=== PATIENT | female | born 1975 | race Caucasian/White ===

== ENCOUNTER → 2019-12-05 17:28 | Outpatient (BNVA) | payer SELFPAY | PROVIDERS: PCP Family Medicine; Visit Provider Emergency Medicine | DX: M25.559 Pain in unspecified hip (principal); M53.3 Sacrococcygeal disorders, not elsewhere classified; L03.115 Cellulitis of right lower limb | CPT/HCPCS: 72170 ==

== ENCOUNTER → 2021-01-12 09:42 | Outpatient (BNVA) | payer SELFPAY | PROVIDERS: PCP Family Medicine; Visit Provider Nurse Practitioner Family | DX: J32.9 Chronic sinusitis, unspecified (principal); R68.89 Other general symptoms and signs; I10 Essential (primary) hypertension; Z20.822 Contact with and (suspected) exposure to COVID-19 | CPT/HCPCS: 87400; 87635 ==

== ENCOUNTER → 2021-01-20 10:19 | Outpatient (BNVA) | payer SELFPAY | PROVIDERS: PCP Family Medicine; Visit Provider Emergency Medicine | DX: I10 Essential (primary) hypertension (principal); E66.9 Obesity, unspecified; Z72.0 Tobacco use; R53.83 Other fatigue | CPT/HCPCS: 85025 ==

== ENCOUNTER → 2021-02-04 11:15 | Outpatient (BNVA) | payer SELFPAY | PROVIDERS: PCP Family Medicine; Visit Provider Nurse Practitioner Family | DX: I10 Essential (primary) hypertension (principal); R53.83 Other fatigue; Z72.0 Tobacco use | CPT/HCPCS: 80053; 80061; 82043; 84443; 85025 ==

== ENCOUNTER → 2021-02-17 14:51 | Outpatient (BNVA) | payer SELFPAY | PROVIDERS: PCP Family Medicine; Visit Provider Emergency Medicine | DX: G62.9 Polyneuropathy, unspecified (principal); M79.671 Pain in right foot; M79.672 Pain in left foot; G89.29 Other chronic pain | CPT/HCPCS: 73630 ==

== ENCOUNTER → 2021-03-17 10:35 | Outpatient (BNVA) | payer SELFPAY | PROVIDERS: PCP Family Medicine; Visit Provider Emergency Medicine | DX: M25.562 Pain in left knee (principal); M17.12 Unilateral primary osteoarthritis, left knee | CPT/HCPCS: 73562 ==

== ENCOUNTER 2021-05-25 11:57 | Outpatient (CLI) | payer SELFPAY ==
--- NOTE | 2021-05-25 12:04 | XRR_ITS ---
PROCEDURE INFORMATION: Exam: XR Cervical Spine Exam date and time: 05/25/2021 12:04 PM Age: 46 years old Clinical indication: Cervicalgia; Patient HX: Pain, HX of bulging disc; Additional info: M50.20 - other cervical disc displacement, unspecified ce. . . TECHNIQUE: Imaging protocol: XR of the cervical spine. Views: 2 or 3 views. COMPARISON: CR Chest 1 [place] [id number] 08/25/2014 8:53 PM FINDINGS: Bones/joints: No fracture or other acute abnormalities are seen. Chronic degenerative changes are present especially from C5 through C7 with disc space narrowing sclerosis and osteophytes. There is no significant malalignment. Soft tissues: Unremarkable. XR/XR cervical spine 3V* [id number] IMPRESSION: Chronic degenerative disease. No acute abnormality.
--- NOTE | 2021-05-25 12:04 | XRR_ITS ---
PROCEDURE INFORMATION: Exam: XR Lumbosacral Spine Exam date and time: 05/25/2021 12:04 PM Age: 46 years old Clinical indication: Pain; Dorslagia; Prior surgery; Surgery type: Gb, tubal; Additional info: M54.9 - dorsalgia, unspecified TECHNIQUE: Imaging protocol: XR of the lumbosacral spine. Views: 2 or 3 views. COMPARISON: CR XR pelvis 1-2V* [id number] 12/05/2019 5:40 PM FINDINGS: Bones/joints: No fracture or other acute abnormalities are seen. Chronic degenerative changes are present with mild disc space narrowing and scattered sclerosis and osteophyte formation. There is no significant malalignment. Soft tissues: Unremarkable. XR/XR lumbar spine 2-3V* [id number] IMPRESSION: Moderate chronic degenerative disease. No acute abnormality.
== END 2021-05-25 11:58 | disposition home or self-care (01) ==
LOC: RAD 12:00
PROVIDERS: PCP Family Medicine; Visit Provider Family Medicine
DX: M50.20 Other cervical disc displacement, unspecified cervical region (principal); M54.9 Dorsalgia, unspecified; G89.29 Other chronic pain; M54.16 Radiculopathy, lumbar region
CPT/HCPCS: 72040; 72100

== ENCOUNTER → 2021-06-17 12:20 | Outpatient (BNVA) | payer SELFPAY | PROVIDERS: PCP Family Medicine; Visit Provider Emergency Medicine | DX: L03.90 Cellulitis, unspecified (principal); Z98.1 Arthrodesis status | CPT/HCPCS: 73590 ==

== ENCOUNTER → 2021-07-05 09:57 | Outpatient (BNVA) | payer SELFPAY | PROVIDERS: PCP Family Medicine; Referring Provider Family Medicine; Visit Provider Anesthesiology Pain Medicine | DX: G89.29 Other chronic pain (principal); M54.2 Cervicalgia; M54.16 Radiculopathy, lumbar region; M79.604 Pain in right leg; F17.210 Nicotine dependence, cigarettes, uncomplicated | CPT/HCPCS: 99205 ==

== ENCOUNTER 2021-07-15 16:01 | Outpatient (CLI) | payer MEDICAID, SELFPAY ==
--- NOTE | 2021-07-15 16:45 | MR_ITS ---
WS: [id number] MRI LUMBAR SPINE NONCONTRAST HISTORY: M54.16 - Radiculopathy, lumbar region RIGHT leg pain and numbness. COMPARISON: None available. TECHNIQUE: Sagittal and axial multisequence imaging is submitted. Straightening and reversal normal cervical lordosis centered at C5-6. Mild encroachment upon the vent ral thecal sac. Mild straightening of the normal lumbar lordosis. Less than 2 mm retrolisthesis of L4. Mild disc mroelia ccation throughout the lumbar spine. No marrow abnormalities or fractures. Conus terminates normally at L1-2 disc level. L1-L2: Normal. L2-L3: Mild facet and ligamentum flavum hypertrophy. No stenosis. L3-L4: Very minimal annular disc bulging with mild ligamentum flavum hypertrophy and facet arthritis. Small amount of fluid in the facet joints. Mild LEFT foraminal narrowing. L4-L5: Mild annular disc bulging and mild osteophytosis. Annular tear in the RIGHT foraminal disc. Mi ld ligamentum flavum and facet arthritis. Fluid in the facet joints bilaterally. Mild bilateral sky inal narrowing, RIGHT greater than LEFT. L5-S1: Mild ligamentum flavum hypertrophy and facet arthritis. No stenosis. Paravertebral soft tissues are normal. MR/MR lumbar spine wo con* [id number] IMPRESSION: 1. Mild LEFT foraminal narrowing at L3-4 and bilaterally at L4-5. Slightly gre ater stenosis on the RIGHT at L4-5. 2. Mild facet joint synovitis at L3-4 and L4-5. 3. No central stenosis.
== END 2021-07-15 16:02 | disposition home or self-care (01) ==
LOC: RADSHAW 16:05
PROVIDERS: PCP Family Medicine; Visit Provider Anesthesiology Pain Medicine
DX: M54.16 Radiculopathy, lumbar region (principal); M65.88 Other synovitis and tenosynovitis, other site; M48.061 Spinal stenosis, lumbar region without neurogenic claudication
CPT/HCPCS: 72148

== ENCOUNTER → 2021-07-20 10:42 | Outpatient (BNVA) | payer MEDICAID, SELFPAY | PROVIDERS: PCP Family Medicine; Visit Provider Anesthesiology Pain Medicine | DX: G89.29 Other chronic pain (principal); M54.16 Radiculopathy, lumbar region; M54.2 Cervicalgia; F17.210 Nicotine dependence, cigarettes, uncomplicated | CPT/HCPCS: 99214 ==

== ENCOUNTER → 2021-12-07 10:50 | Outpatient (BNVA) | payer MEDICAID, SELFPAY | PROVIDERS: PCP Family Medicine; Visit Provider Family Medicine | DX: I10 Essential (primary) hypertension (principal); R60.0 Localized edema; M54.16 Radiculopathy, lumbar region; M50.20 Other cervical disc displacement, unspecified cervical region; R21 Rash and other nonspecific skin eruption; I16.0 Hypertensive urgency; E87.6 Hypokalemia; Z13.1 Encounter for screening for diabetes mellitus; Z13.220 Encounter for screening for lipoid disorders; Z13.6 Encounter for screening for cardiovascular disorders | CPT/HCPCS: 80053; 80061 ==

== ENCOUNTER → 2021-12-23 13:49 | Outpatient (BNVA) | payer MEDICAID, SELFPAY | PROVIDERS: PCP Family Medicine; Visit Provider Anesthesiology Pain Medicine | DX: G89.29 Other chronic pain (principal); M54.16 Radiculopathy, lumbar region; M54.2 Cervicalgia; F17.210 Nicotine dependence, cigarettes, uncomplicated | CPT/HCPCS: 99214 ==

== ENCOUNTER → 2022-01-04 16:35 | Outpatient (BNVA) | payer MEDICAID, SELFPAY | PROVIDERS: PCP Family Medicine; Visit Provider Family Medicine | DX: M54.16 Radiculopathy, lumbar region (principal); M50.20 Other cervical disc displacement, unspecified cervical region; I10 Essential (primary) hypertension; G47.00 Insomnia, unspecified; R21 Rash and other nonspecific skin eruption | CPT/HCPCS: 80048; 85651; 86038; 86140 ==

== ENCOUNTER 2022-02-08 06:00 | Outpatient (RCR) | payer MEDICAID, SELFPAY | END 2022-02-10 23:59 | disposition home or self-care (01) | LOC: MPT 06:00 | PROVIDERS: PCP Family Medicine; Referring Provider Anesthesiology Pain Medicine; Visit Provider Anesthesiology Pain Medicine | DX: M54.50 Low back pain, unspecified (principal); G89.29 Other chronic pain | CPT/HCPCS: 97162 ==

== ENCOUNTER → 2022-02-18 11:29 | Outpatient (BNVA) | payer MEDICAID, SELFPAY | PROVIDERS: PCP Family Medicine; Visit Provider Emergency Medicine | DX: R68.89 Other general symptoms and signs (principal); J02.9 Acute pharyngitis, unspecified; B34.9 Viral infection, unspecified | CPT/HCPCS: 87071; 87400; 87880 ==

== ENCOUNTER → 2022-03-02 12:59 | Outpatient (BNVA) | payer MEDICAID, SELFPAY | PROVIDERS: PCP Family Medicine; Visit Provider Podiatrist Foot & Ankle Surgery | DX: M79.671 Pain in right foot (principal); G89.29 Other chronic pain; Z87.891 Personal history of nicotine dependence | CPT/HCPCS: 99213; 99214 ==

== ENCOUNTER → 2022-03-30 11:25 | Outpatient (BNVA) | payer MEDICAID, SELFPAY | PROVIDERS: PCP Family Medicine; Visit Provider Podiatrist Foot & Ankle Surgery | DX: M79.671 Pain in right foot (principal); M79.672 Pain in left foot | CPT/HCPCS: 99213; 99214 ==

== ENCOUNTER 2022-04-21 08:52 | Outpatient (CLI) | payer MEDICAID, SELFPAY ==
--- NOTE | 2022-04-21 09:30 | MR_ITS ---
WS: [id number] MRI OF THE RIGHT FOOT WITHOUT GADOLINIUM ENHANCEMENT. INDICATION: Plantar fascia fasciitis. Evaluate for stress fracture. TECHNIQUE: Sagittal PD, sagittal STIR, axial T1, axial STIR, axial PD, axial T2, coronal PD, coronal T2 fat sat. FINDINGS: Postoperative changes intramedullary kitty and screw fixation distal tibia. Distal Achilles i s normal in appearance. Normal peroneal tendon sheath. Normal peroneal longus and brevis. Normal exte nsor and flexor compartment tendons. Normal ankle mortise. Normal medial and lateral malleolus. Mild thickening of the plantar fascia livia g the medial calcaneal insertion measuring 4.9 mm with a tiny amount of perifascial edema. Normal rizwana us and calcaneus. No visualized wrist fractures. Small amount of subchondral cystic change involving the lateral ankle mortise at the tibial plafond. Normal talocalcaneal articulation. Normal navicular. Normal cuboid. Normal cuneiforms. Metatarsals appear normal. Unremarkable visualized phalanges. MR/MR foot RT wo con* [id number] IMPRESSION: 1. Mild thickening of the plantar fascia at the medial calcaneal insertion wit h a small amount of perifascial edema consistent with mild plantar fasciitis. 2. Distal Achilles is normal in appearance. 3. Small amount of subchondral cystic change with edema involving the lateral tibial plafond. 4. No visualized acute fractures or stress fractures.
== END 2022-04-21 08:53 | disposition home or self-care (01) ==
LOC: RAD 08:55
PROVIDERS: PCP Family Medicine; Visit Provider Podiatrist Foot & Ankle Surgery
DX: M79.673 Pain in unspecified foot (principal)
CPT/HCPCS: 73718

== ENCOUNTER → 2022-04-27 13:57 | Outpatient (BNVA) | payer MEDICAID, SELFPAY | PROVIDERS: PCP Family Medicine; Visit Provider Podiatrist Foot & Ankle Surgery | DX: I10 Essential (primary) hypertension (principal); M72.2 Plantar fascial fibromatosis; M54.16 Radiculopathy, lumbar region; M79.671 Pain in right foot; F41.9 Anxiety disorder, unspecified; M79.672 Pain in left foot; M24.571 Contracture, right ankle; R74.8 Abnormal levels of other serum enzymes; L43.2 Lichenoid drug reaction; F33.1 Major depressive disorder, recurrent, moderate; S30.861S Insect bite (nonvenomous) of abdominal wall, sequela; W57.XXXS Bitten or stung by nonvenomous insect and other nonvenomous arthropods, sequela | CPT/HCPCS: 80053; 84443; 99213; 99214 ==

== ENCOUNTER 2022-05-06 08:44 | Day surgery (SDC) | payer MEDICAID, SELFPAY ==
[2022-05-05 13:31] VITALS: BMI 43.9
[2022-05-06 08:54] VITALS: BP 173/130; PULSE 87; RESP 18; TEMP 36.4; O2SAT 95
[2022-05-06] MEDS: gabapentin 300 mg Capsule PO (09:04)
[2022-05-06] MEDS: sodium chloride 0.9% 1,000 ML 30 ML IV (09:04)
[2022-05-06] MEDS: CELEcoxib 200 mg Capsule 400 MG PO (09:04)
--- NOTE | 2022-05-06 09:18 | ANES.PREANE2 ---
Pre-Anesthetic Assessment Height/Weight: Height 1.65 m Weight 119.748 kg Temp Pulse Resp BP Pulse Ox 97.6 F 87 18 173/130 95 05/06/22 08:54 05/06/22 08:54 05/06/22 08:54 05/06/22 08:54 05/06/22 08:54 Preop Diagnosis: Plantar fasciitis and gastrocnemius equinus, right lower extremity Operation Date: 05/06/22 10:20 Proposed Procedures p Gastrocnemius Recession [id number],M72.2,M24.571(Right) - Regan Tello DPM s plantar fascial release right lower extremity(Right) - Regan Tello DPM Familial anesthetic complications: none Was Beta Alonzo taken within 24 hours: N/A Was Clonidine taken within 24 hours: Yes Last intake: Intake Last Liquid Date 05/05/22 Last Liquid Time 19:00 Last Solid Date 05/05/22 Last Solid Time 19:00 Social No alcohol and No tobacco Exam alert, oriented x 3, clear to auscultation bilaterally and regular rate & rhythm Airway Submandibular: within normal limits Cervical ROM: within normal limits Mallampati: Class II Comments: Comments: Poor dentition CV/HEM Hypertension None reported Hepatic None reported GI Gastroesophageal Reflux Disease Metabolic Morbid Obesity Musc/skel Lower Back Pain and Osteoarthritis/DJD Chronic neck pain Neuropsych Anxiety and Depression Anesthetic Plan ASA status: 3 Anesthesia: Anesthesia Evaluation, General and MAC Other: We discussed risk and benefits of general anesthesia including PONV, sore throat (sometimes severe), corneal abrasion, positioning and peripheral nerve injuries, life threatening allergic reaction, post operative ICU admission requiring prolonged intubation, aspiration, stroke, heart attack, , and rare incidences of recall. I discussed with the patient risks, goals, and benefits of MAC and general anesthesia. We discussed spectrum of MAC anesthesia including conversion to general as well as possibility of recall of intraoperative stimuli including discomfort/pain. Patient consents to MAC or General pending further discussion with surgeon. Plan stress dose steroids Risk of > 500 ml blood loss (7ml/kg in children): No Medications/Allergies Home Medications Medication Instructions Recorded Confirmed Last Taken Type amitriptyline 10 mg tablet 10 mg PO .at bedtime 90 Days #90 02/08/22 05/05/22 05/05/22 Rx tab hydroxyzine HCl 25 mg tablet 25 mg PO TID PRN #60 tab 04/05/22 05/05/22 05/05/22 Rx metoclopramide HCl 5 mg tablet 5 mg PO DAILY #30 tab 04/14/22 05/05/22 05/05/22 Rx (Reglan) prednisone 10 mg tablet 10 mg PO DAILY #60 tab 04/21/22 05/05/22 05/05/22 Rx triamcinolone acetonide 0.1 % 1 applic TOPICAL BID #453.6 g 04/21/22 05/06/22 05/05/22 Rx topical cream amlodipine 10 mg tablet 10 mg PO DAILY 90 Days #90 tab 04/27/22 05/06/22 05/06/22 Rx baclofen 10 mg tablet 10 mg PO TID PRN 30 Days #90 tab 04/27/22 05/05/22 05/05/22 Rx clonazepam 0.5 mg tablet 0.5 mg PO .at bedtime PRN 30 Days 04/27/22 05/05/22 05/05/22 Rx #30 tab clonidine HCl 0.1 mg tablet 0.1 mg PO BID 30 Days #60 tab 04/27/22 05/05/22 05/05/22 Rx diclofenac sodium 75 mg See Rx Instructions .ROUTE 04/27/22 05/05/22 05/05/22 Rx tablet,delayed release .COMPLEX #60 tab estradiol 2 mg tablet 1 mg PO DAILY #30 tab 04/27/22 05/05/22 05/05/22 Rx gabapentin 300 mg capsule 300 mg PO TID 30 Days #90 cap 04/27/22 05/05/22 05/05/22 Rx losartan 100 mg tablet 100 mg PO DAILY 30 Days #30 tab 04/27/22 05/05/22 05/05/22 Rx paroxetine HCl 20 mg tablet (Paxil) 20 mg PO QAM #30 tab 04/27/22 05/05/22 05/05/22 Rx potassium chloride 8 mEq 8 meq PO TID 90 Days #270 tab 04/27/22 05/05/22 05/05/22 Rx tablet,extended release Allergies Allergy/AdvReac Type Severity Reaction Status Date / Time No Known Allergies Allergy Verified 05/05/22 13:29 Current Medications Generic Name Dose Route Start Last Admin Trade Name Freq PRN Reason Stop Dose Admin Sodium Chloride 1,000 mls @ 30 mls/hr 05/06/22 09:00 05/06/22 09:04 Sodium Chloride 0.9% IV 05/07/22 08:59 30 mls/hr .Q24H HOLLY Administration PFSH Anesthesia Medical History Abdominal pain Anxiety Chronic back pain greater than 3 months duration Chronic neck pain Depression Edema History of COVID-19 HTN (hypertension) with goal to be determined Obesity Surgical History H/O tubal ligation History of hysterectomy History of open reduction and internal fixation (ORIF) procedure Hx of cholecystectomy Family History Sister Cancer Other Diabetes Social History Smoking and tobacco status: former smoker (current vape usage) Alcohol intake: never Lives independently: Yes History of recent travel: No Female Reproductive History Spontaneous abortions: No Data Anesthesia Cardiac Studies: No Data to Display
--- NOTE | 2022-05-06 09:44 | W.PM.OPSUD ---
Surgery/Procedure H&P Update DATE OF PROCEDURE: May 06, 2022 DATE H&P PERFORMED: 04/27/22 CHANGES TO PREVIOUS DOCUMENTATION: None PREOP DIAGNOSIS: Plantar fasciitis and gastrocnemius equinus, right lower extremity PLANNED PROCEDURE: Operation Date: 05/06/22 10:20 Proposed Procedures p Gastrocnemius Recession [id number],M72.2,M24.571(Right) - Regan Tello DPM s plantar fascial release right lower extremity(Right) - Regan Tello DPM
--- NOTE | 2022-05-06 09:45 | W.PM.OPSUD ---
Surgery/Procedure H&P Update DATE OF PROCEDURE: May 06, 2022 DATE H&P PERFORMED: 04/27/22 PREOP DIAGNOSIS: Plantar fasciitis and gastrocnemius equinus, right lower extremity PLANNED PROCEDURE: Operation Date: 05/06/22 10:20 Proposed Procedures p Gastrocnemius Recession [id number],M72.2,M24.571(Right) - Regan Tello DPM s plantar fascial release right lower extremity(Right) - Regan Tello DPM
--- NOTE | 2022-05-06 10:02 | P.OP_ITS ---
Operative Report Date of procedure: May 06, 2022 Pre-op diagnosis: Plantar fasciitis right lower extremity. Post-op diagnosis: Same Post-op findings: None Procedure done: Plantar fasciectomy Implants: 3-0 Prolene Specimens removed/disposition: None Pathology: None Surgeon: [facility] Assistant: Christine Estimated blood loss: 5 11 IV fluids: 0 Urine output: 0 Complications: None Findings: None Brief History: Patient has had recalcitrant plantar fasciitis left and right, right is more severe and affects her quality of everyday life and her ability to carry out her duties at work would like to discuss surgical invention as she has failed at home physical therapy that has been greater than 1 month in duration, previous treatments have been occluded steroidal and nonsteroidal anti-inflammatories both locally and orally, supportive shoes, prefabricated orthotics, stretching exercises and activity modifications without improvement.? Discussed plantar fascial release versus debridement and gastrocnemius recession to the right lower extremity.? Risks include but are not limited to pain, bleeding, numbness, infection, surgical site dehiscence, chronic numbness, paresthesias, hypersensitivity, keloid scar, suture abscess, damage to adjacent soft tissue structures, collapse of the medial longitudinal arch and painful symptomatic flatfoot as a result of release of the plantar fascia which is a supporting structure of the arch, painful plantar scar, failure to alleviate pain or failure to correct deformity, overcorrection of deformity and need for further surgical intervention.? Also need for advanced bracing, orthotics and physical therapy postoperatively.? Patient also will be at risk for deep vein thrombosis, heart attack, stroke and .? Patient would like to proceed Procedure: Under mild sedation the patient was brought to the operating room and remained on the gurney in supine position. A timeout was performed. Anesthesia was then administered by the anesthesia service. Local anesthesia injected by myself consisting of 30 cc of one-to-one mixture 1% lidocaine and 0.25% Marcaine plain and a heel block and posterior tibial nerve block fashion. Well-padded pneumatic tourniquet applied to the right calf. The right lower extremity was scrubbed, prepped and draped utilizing normal aseptic technique. Right foot was exanguinated with an Esmarch bandage and a tourniquet inflated to 250 mmHg. Medial band of the plantar fascia was palpated at the instep of the right plan tar fascia following a oblique skin line that was a more prominent skin line a linear longitudinal incision was made within the skin line through skin with a #15 blade with blunt dissection through subcutaneous tissues to the plantar fascia. Self-retaining wheat [place] retractor enabled excellent visualization of plantar fascia and the medial two thirds were released sharply with a #15 blade, the plantar fascial was thickened and had a celery like composition when releasing. The incision was then flushed with copious amounts of sterile saline solution and closed in a single layer with 3-0 Prolene. Incision was dressed with Adaptic, sterile 4 x 4, Kerlix, Davion wrap and a cam boot was applied. Tourniquet was deflated and a prompt hyperemic response is noted to the distal digits of the right foot. Patient tolerated the procedure well and was transferred to the PACU with vital signs stable and vascular status intact. Following a period of postop monitoring she will be discharged home. Will require crutches to facilitate nonweightbearing, she may be protected weightbearing with a cam boot and crutches for stabilization.
[2022-05-06] MEDS: lidocaine 2% INJ 20 mL INJECTION (10:28)
[2022-05-06 10:37] VITALS: BP 116/73; PULSE 70; RESP 18; TEMP 36.7; O2SAT 98
[2022-05-06 10:46] VITALS: BP 124/69; PULSE 65; RESP 18; TEMP 36.2; O2SAT 98
[2022-05-06 10:50] LABS: Blood Urea Nitrogen 20 mg/dL (6-20); Calcium 9.3 mg/dL (8.5-10.5); Carbon Dioxide 22 mmol/L (22-29); Chloride 104 mmol/L (98-107); Glomerular Filtration Rate 76.2 mL/min (90-130); Glucose 83 mg/dL (65-115); Osmolality Calculated 286 mOsm/kg (285-295); Sodium 137 mmol/L (136-145)
[2022-05-06 10:55] VITALS: RESP 18; O2SAT 99
[2022-05-06 10:55] LABS: Anion Gap 14.9 (5-19); Potassium 3.9 mmol/L (3.5-5.1)
[2022-05-06] MEDS: oxyCODONE-APAP 10-325 mg Tablet 1 TAB PO (10:55)
[2022-05-06 11:05] VITALS: BP 141/88; PULSE 63; RESP 18; TEMP 36.7; O2SAT 97
--- NOTE | 2022-05-06 12:02 | ANE.PACU2 ---
Inpatient post-anesthesia follow up: Airway intact: Yes Vital signs: Temperature 98.1 F Pulse Rate 63 Respiratory Rate 18 Blood Pressure 141/88 Pulse Oximetry 97 Oxygen Delivery Me thod Room Air Oxygen Flow Rate Fraction of Inspir ed Oxygen Hydration adequate: Yes Nausea and vomiting: No Pain level: 1 Mental status: Baseline
== END 2022-05-06 11:27 | disposition home or self-care (01) ==
PROVIDERS: Anesthesiology; PCP Family Medicine; Visit Provider Podiatrist Foot & Ankle Surgery
PROC: (CPT 28250; 2022-05-06 10:10)
DX: M72.2 Plantar fascial fibromatosis (principal); K21.9 Gastro-esophageal reflux disease without esophagitis; I10 Essential (primary) hypertension; E66.01 Morbid (severe) obesity due to excess calories; Z68.41 Body mass index [BMI] 40.0-44.9, adult; Z79.52 Long term (current) use of systemic steroids; F41.9 Anxiety disorder, unspecified; Z86.16 Personal history of COVID-19; F17.290 Nicotine dependence, other tobacco product, uncomplicated
CPT/HCPCS: 28060; 80048; J2250; J2704; J2930; J3010; J3490; J7030

== ENCOUNTER → 2022-05-26 13:44 | Outpatient (BNVA) | payer MEDICAID, SELFPAY | PROVIDERS: PCP Family Medicine; Visit Provider Podiatrist Foot & Ankle Surgery | DX: Z98.890 Other specified postprocedural states (principal) | CPT/HCPCS: 99024 ==

== ENCOUNTER 2022-06-14 07:56 | Outpatient (CLI) | payer MEDICAID, SELFPAY ==
--- NOTE | 2022-06-14 08:00 | MR_ITS ---
WS: [id number] MRI LEFT FOOT without CONTRAST. COMPARISON: None Multiplanar, multisequence imaging is performed without contrast. There is very mild thickening of the medial band of the plantar fascia. Medial band measures 4.6 mm w hich is just slightly greater than normal. There is mild fusiform enlargement. No adjacent edema and there is no edema at the insertion site at the calcaneus. There is no fluid. No marrow edema. Signal within the talus and calcaneus is normal. The distal Achilles tendon is normal. Peroneal brevi s and longus tendons are normal course is visualized in the posterior foot. Mild degenerative changes in the midfoot. There is mild joint space narrowing and a small cyst within the lateral cuneiform. Normal extensor and flexor compartment tendons. There is very mild narrowing of the tibiotalar joint. No osteochondral lesions or loose body. No significant joint effusion. MR/MR foot LT wo con* [id number] IMPRESSION: 1. There is very mild fusiform widening of the medial band of the plantar fasc ia. No associated edema. This may represent a very mild form of chronic fasciit is. 2. No marrow edema in the calcaneus at the insertion site. 3. Mild degenerative changes in the midfoot.
== END 2022-06-14 07:57 | disposition home or self-care (01) ==
LOC: RAD 07:57
PROVIDERS: PCP Family Medicine; Visit Provider Podiatrist Foot & Ankle Surgery
DX: M72.2 Plantar fascial fibromatosis (principal)
CPT/HCPCS: 73718

== ENCOUNTER → 2022-06-16 12:57 | Outpatient (BNVA) | payer MEDICAID, SELFPAY | PROVIDERS: PCP Family Medicine; Visit Provider Podiatrist Foot & Ankle Surgery | DX: M72.2 Plantar fascial fibromatosis (principal); Z98.890 Other specified postprocedural states | CPT/HCPCS: 99214 ==

== ENCOUNTER → 2022-06-28 14:47 | Outpatient (BNVA) | payer MEDICAID, SELFPAY | PROVIDERS: PCP Family Medicine; Visit Provider Emergency Medicine | DX: R68.89 Other general symptoms and signs (principal); R00.0 Tachycardia, unspecified; R26.89 Other abnormalities of gait and mobility; R07.89 Other chest pain; R53.1 Weakness | CPT/HCPCS: 87426 ==

== ENCOUNTER 2022-07-01 10:28 | Day surgery (SDC) | payer OTHER, MEDICAID, SELFPAY ==
[2022-06-30 08:57] VITALS: BMI 43.2
[2022-07-01] VITALS (8 sets, daily range): BP systolic 102–134; BP diastolic 68–90; PULSE 66–78; RESP 12–18; TEMP 36.1–36.6; O2SAT 93–97
--- NOTE | 2022-07-01 06:30 | W.PM.OPSUD ---
Surgery/Procedure H&P Update DATE OF PROCEDURE: July 01, 2022 DATE H&P PERFORMED: 06/16/22 CHANGES TO PREVIOUS DOCUMENTATION: None PREOP DIAGNOSIS: Recalcitrant plantar fasciitis, left foot. PRIMARY INDICATION FOR PROCEDURE: Recalcitrant plantar fasciitis left foot. PLANNED PROCEDURE: Operation Date: 07/01/22 12:00 Proposed Procedures p ?Left plantar fasciectomy CPT 06539,M72.2(Left) - Regan Tello DPM
--- NOTE | 2022-07-01 06:31 | PM.OP ---
Operative Report Date of procedure: July 01, 2022 Pre-op diagnosis: Recalcitrant left plantar fasciitis Post-op diagnosis: Same Post-op findings: Fibrosing of the medial band plantar fascia left foot Procedure done: Left plantar fasciectomy CPT code 04106 Implants: 3-0 Prolene and 10 mL of Exparel with 10 mL of saline Surgeon: Regan Tello D.P.M. Operation Agent: Justa Estimated blood loss: 5 11 Findings: Fibrosing of the plantar fascia left foot Brief History: Patient has had recalcitrant plantar fasciitis left and right, right foot is that is post plantar fasciectomy with pain being resolved.? Left foot is now her most painful and affects her quality of everyday life and her ability to carry out her duties at work would like to discuss surgical invention as she has failed at home physical therapy that has been greater than 1 month in duration, previous treatments have been occluded steroidal and nonsteroidal anti-inflammatories both locally and orally, supportive shoes, prefabricated orthotics, stretching exercises and activity modifications without improvement.? Discussed plantar fascial release versus debridement and gastrocnemius recession to the right lower extremity.? Risks include but are not limited to pain, bleeding, numbness, infection, surgical site dehiscence, chronic numbness, paresthesias, hypersensitivity, keloid scar, suture abscess, damage to adjacent soft tissue structures, collapse of the medial longitudinal arch and painful symptomatic flatfoot as a result of release of the plantar fascia which is a supporting structure of the arch, painful plantar scar, failure to alleviate pain or failure to correct deformity, overcorrection of deformity and need for further surgical intervention.? Also need for advanced bracing, orthotics and physical therapy postoperatively.? Patient also will be at risk for deep vein thrombosis, heart attack, stroke and .? Patient would like to proceed with surgical intervention at the earliest availability this can be set up for Friday, July 01, 2022 outpatient left plantar fasciectomy. Procedure: Under mild sedation the patient was brought to the operating room and remained on the gurney in supine position.? A timeout was performed.? Anesthesia was then administered by the anesthesia service.? Local anesthesia injected by myself consisting of 30 cc 0.25% Marcaine plain and a heel block and posterior tibial nerve block fashion.? Well-padded pneumatic tourniquet applied to the left calf.? The left lower extremity was scrubbed, prepped and draped utilizing normal aseptic technique.? Left foot was exanguinated with an Esmarch bandage and a tourniquet inflated to 250 mmHg. Medial band of the plantar fascia was palpated at the instep of the left plantar fascia following a oblique skin line that was a more prominent skin line a linear longitudinal incision was made within the skin line through skin with a #15 blade with blunt dissection through subcutaneous tissues to the plantar fascia.? Self-retaining wheat [place] retractor enabled excellent visualization of plantar fascia and the medial two thirds were released sharply with a #15 blade, the plantar fascial was thickened and had a celery like composition when releasing.? The incision was then flushed with copious amounts of sterile saline solution and closed in a single layer with 3-0 Prolene.? Incision was dressed with Adaptic, sterile 4 x 4, Kerlix, Davion wrap and a cam boot was applied.? Tourniquet was deflated and a prompt hyperemic response is noted to the distal digits of the left foot.? Patient tolerated the procedure well and was transferred to the PACU with vital signs stable and vascular status intact.? Following a period of postop monitoring she will be discharged home.? Will require crutches to facilitate nonweightbearing, she may be protected weightbearing with a cam boot and crutches for stabilization. Postoperatively 10 cc of Exparel expanded with saline additional 10 cc injected about the operative site in a grid like fashion subcutaneously per manufacture technique and recommendations.
[2022-07-01] MEDS: CELEcoxib 200 mg Capsule 400 MG PO (11:10)
[2022-07-01] MEDS: gabapentin 300 mg Capsule PO (11:10)
[2022-07-01] MEDS: sodium chloride 0.9% 1,000 ML 30 ML IV (11:10)
[2022-07-01] MEDS: ceFAZolin 2,000 MG in sodium chloride 0.9% (plus) 50 ML 100 MG IV (11:45)
--- NOTE | 2022-07-01 11:48 | ANES.PREANE2 ---
Pre-Anesthetic Assessment Height/Weight: Height 1.65 m Weight 117.934 kg Temp Pulse Resp BP Pulse Ox O2 Del Method 97.8 F 69 16 134/90 95 07/01/22 10:41 07/01/22 10:41 07/01/22 10:41 07/01/22 10:41 07/01/22 10:41 07/01/22 10:49 Preop Diagnosis: Recalcitrant plantar fasciitis left Operation Date: 07/01/22 12:00 Proposed Procedures p ?Left plantar fasciectomy CPT 44732,M72.2(Left) - Regan Tello DPM Familial anesthetic complications: None Was Beta Alonzo taken within 24 hours: N/A Was Clonidine taken within 24 hours: Yes Last intake: Intake Last Liquid Date 06/30/22 Last Liquid Time 23:00 Last Solid Date 06/30/22 Last Solid Time 23:00 Social No alcohol and No tobacco Exam alert, oriented x 3, clear to auscultation bilaterally and regular rate & rhythm Airway Submandibular: within normal limits Cervical ROM: within normal limits Mallampati: Class II Dentition: chipped CV/HEM Hypertension Metabolic Morbid Obesity [facility] [place] Lower Back Pain Neuropsych Anxiety and Depression Anesthetic Plan ASA status: 3 Anesthesia: General Medications/Allergies Home Medications Medication Instructions Recorded Confirmed Last Taken Type triamcinolone acetonide 0.1 % 1 applic topical BID #453.6 grams 04/21/22 06/30/22 05/05/22 Rx topical cream amlodipine 10 mg tablet 10 mg PO DAILY 90 days #90 tabs 04/27/22 07/01/22 07/01/22 Rx estradiol 2 mg tablet 1 mg PO DAILY #30 tabs 04/27/22 06/30/22 05/05/22 Rx losartan 100 mg tablet 100 mg PO DAILY 30 days #30 tabs 04/27/22 06/30/22 05/05/22 Rx potassium chloride 8 mEq 8 meq PO TID 90 days #270 tabs 04/27/22 06/30/22 05/05/22 Rx tablet,extended release Crutches bilaterally #1 ea 05/10/22 06/29/22 Unknown Rx miscellaneous medical supply See Rx Instructions miscellaneous 05/10/22 06/29/22 Unknown Rx .COMPLEX #1 ea clonidine HCl 0.1 mg tablet 0.1 mg PO BID 30 days #60 tabs 06/25/22 07/01/22 07/01/22 Rx gabapentin 300 mg capsule 300 mg PO TID 30 days #90 caps 06/25/22 06/30/22 Unknown Rx amitriptyline 25 mg tablet 25 mg PO .at bedtime 30 days #30 06/29/22 06/30/22 Unknown Rx tabs bupropion HCl 150 mg 24 hr tablet, 150 mg PO QAM 30 days #30 tabs 06/29/22 06/30/22 Unknown Rx extended release clonazepam 0.5 mg tablet 0.5 mg PO DAILY PRN anxiety 30 06/29/22 06/30/22 Unknown Rx days #25 tabs paroxetine HCl 20 mg tablet (Paxil) 20 mg PO QAM anxiety, depression 06/29/22 06/30/22 Unknown Rx #30 tabs oxycodone-acetaminophen 10 mg-325 1 tab PO Q6H PRN pain 7 days #28 07/01/22 Unknown Rx mg tablet (Percocet) tabs Allergies Allergy/AdvReac Type Severity Reaction Status Date / Time No Known Allergies Allergy Verified 06/29/22 09:49 Current Medications Generic Name Dose Route Start Last Admin Trade Name Freq PRN Reason Stop Dose Admin Sodium Chloride 1,000 mls @ 30 mls/hr 07/01/22 10:45 07/01/22 11:10 Sodium Chloride 0.9% IV 07/02/22 10:44 30 mls/hr .Q24H HOLLY Administration PFSH Anesthesia Medical History (Updated 06/29/22 @ 11:30 by Jaylene Kilgore MD) Abdominal pain Abnormality of gait due to impairment of balance Anxiety Chronic back pain greater than 3 months duration Chronic neck pain Depression Edema History of COVID-19 HTN (hypertension) with goal to be determined Impairment of balance Methamphetamine dependence in remission Obesity Psychiatric care Surgical History H/O tubal ligation History of hysterectomy History of open reduction and internal fixation (ORIF) procedure Hx of cholecystectomy Family History Sister Cancer Other Diabetes Social History Smoking and tobacco status: former smoker (current vape usage) Alcohol intake: never Lives independently: Yes History of recent travel: No Female Reproductive History Spontaneous abortions: No Data Anesthesia : 07/01/22 11:05 BMP 07/01/22 11:05 Sodium Cancelled Potassium Cancelled Chloride Cancelled Carbon Dioxide Cancelled BUN Cancelled Creatinine Cancelled Glucose Cancelled Calcium Cancelled Cardiac Studies: No Data to Display
[2022-07-01 12:27] LABS: Anion Gap 13.6 (5-19); Blood Urea Nitrogen 14 mg/dL (6-20); Carbon Dioxide 24 mmol/L (22-29); Chloride 106 mmol/L (98-107); Glomerular Filtration Rate 76.2 mL/min (90-130); Glucose 97 mg/dL (65-115); Osmolality Calculated 288 mOsm/kg (285-295); Potassium 4.6 mmol/L (3.5-5.1); Sodium 139 mmol/L (136-145)
[2022-07-01] MEDS: oxyCODONE-APAP 10-325 mg Tablet 1 TAB PO (12:49)
--- NOTE | 2022-07-01 14:53 | ANE.PACU2 ---
Inpatient post-anesthesia follow up: Airway intact: Yes Vital signs: Temperature 97.6 F Pulse Rate 66 Respiratory Rate 16 Blood Pressure 112/78 Pulse Oximetry 96 Oxygen Delivery Me thod Room Air Oxygen Flow Rate Fraction of Inspir ed Oxygen Hydration adequate: Yes Nausea and vomiting: No Pain level: 2 Mental status: Baseline
== END 2022-07-01 13:09 | disposition home or self-care (01) ==
PROVIDERS: PCP Family Medicine; Visit Provider Podiatrist Foot & Ankle Surgery
PROC: (CPT 28060; principal; 2022-07-01 11:50)
DX: M72.2 Plantar fascial fibromatosis (principal); F41.9 Anxiety disorder, unspecified; F32.A Depression, unspecified; I10 Essential (primary) hypertension; E66.9 Obesity, unspecified; Z68.41 Body mass index [BMI] 40.0-44.9, adult; Z86.16 Personal history of COVID-19; F17.290 Nicotine dependence, other tobacco product, uncomplicated
CPT/HCPCS: 28060; 80048; C9290; J2250; J2704; J3010; J3490; J7030

== ENCOUNTER 2022-07-21 16:41 | Outpatient (CLI) | payer OTHER, MEDICAID, SELFPAY ==
[2022-07-21 23:07] LABS: Hepatitis A Antibody IgM Non-Reactive (Nonreactive); Hepatitis B Core AB, Total Non-Reactive (Nonreactive); Hepatitis B Surface AB 3.5 (11.5-1000); Hepatitis B Surface Antigen Non-Reactive (Nonreactive)
[2022-07-22 00:30] LABS: Hepatitis C Virus Antibody Reactive (Nonreactive)
== END 2022-07-21 16:42 | disposition home or self-care (01) ==
PROVIDERS: PCP Family Medicine; Visit Provider Dermatology
DX: L43.9 Lichen planus, unspecified (principal)
CPT/HCPCS: 36415; 86705; 86706; 86709; 86803; 87340; 87522

== ENCOUNTER 2022-08-01 15:08 | Outpatient (CLI) | payer OTHER, MEDICAID, SELFPAY ==
[2022-08-01 16:29] LABS: Hepatitis C Virus Antibody Reactive (Nonreactive)
== END 2022-08-01 15:09 | disposition home or self-care (01) ==
LOC: LAB 15:13
PROVIDERS: PCP Family Medicine; Visit Provider Dermatology
DX: L43.2 Lichenoid drug reaction (principal); R74.8 Abnormal levels of other serum enzymes
CPT/HCPCS: 36415; 86803

== ENCOUNTER 2022-08-11 13:31 | Outpatient (CLI) | payer OTHER, MEDICAID, SELFPAY ==
[2022-08-11 14:55] LABS: Alanine Aminotransferase 126 U/L (0-33); Albumin Level 3.9 g/dL (3.5-5.2); Alkaline Phosphatase 92 U/L (35-105); Anion Gap 13.1 (5-19); Aspartate Amino Transferase 84 U/L (0-32); Blood Urea Nitrogen 13 mg/dL (6-20); Carbon Dioxide 21 mmol/L (22-29); Chloride 103 mmol/L (98-107); Globulin 3.8 g/dL (1.3-4.6); Glomerular Filtration Rate 88.9 mL/min (90-130); Glucose 94 mg/dL (65-115); Osmolality Calculated 276 mOsm/kg (285-295); Potassium 4.1 mmol/L (3.5-5.1); Sodium 133 mmol/L (136-145); Total Bilirubin 0.4 mg/dL (0.15-1.2); Total Protein 7.7 g/dL (6.6-8.7)
== END 2022-08-11 13:32 | disposition home or self-care (01) ==
PROVIDERS: PCP Family Medicine; Referring Provider Podiatrist Foot & Ankle Surgery; Visit Provider Dermatology
DX: B35.1 Tinea unguium (principal); L43.9 Lichen planus, unspecified
CPT/HCPCS: 36415; 80053; 87522

== ENCOUNTER 2022-08-19 13:02 | Outpatient (CLI) | payer OTHER, MEDICAID, SELFPAY ==
[2022-08-22 20:03] LABS: HEP C RNA Viral Load Quant 13500000 IU/mL (NOT DETECTED); HEP C RNA Viral Load Quant 7.13 Log IU/mL (NOT DETECTED)
== END 2022-08-19 13:03 | disposition home or self-care (01) ==
LOC: LAB 13:07
PROVIDERS: PCP Family Medicine; Visit Provider Dermatology
DX: B18.2 Chronic viral hepatitis C (principal)
CPT/HCPCS: 36415; 87522

== ENCOUNTER 2022-09-06 14:10 | Outpatient (CLI) | payer MEDICAID, SELFPAY ==
[2022-09-06 15:27] LABS: Basophils % 0.4 %; Eosinophils # 0.1 10^3/uL (0.0-0.8); Hematocrit 42.5 % (37.0-47.0); Hemoglobin 14.1 g/dL (11.5-15.3); Lymphocytes # 1.5 10^3/uL (0.8-4.8); Mean Corpuscular HGB Conc 33.2 g/dL (30.0-36.0); Mean Corpuscular Hemoglobin 30.8 pg (28.0-34.0); Mean Corpuscular Volume 92.8 fl (81-99); Mean Platelet Volume 11.4 fL (7.4-10.4); Monocytes # 0.6 10^3/uL (0.2-0.9); Monocytes % 13.9 %; Neutrophils # 2.24 10^3/uL (1.8-7.7); Neutrophils % 49.5 %; Nucleated Red Blood Cells % 0 %; Platelet Count 179 10^3/cmm (130-400); Red Blood Count 4.58 10^6/uL (4.1-5.3); Red Cell Distribution Width 12.5 % (12.1-15.1); White Blood Count 4.5 10^3/uL (4.0-10.0)
[2022-09-06 15:34] LABS: Slide Review Slide Review Perform
[2022-09-06 15:58] LABS: Alanine Aminotransferase 78 U/L (0-33); Albumin Level 4.1 g/dL (3.5-5.2); Alkaline Phosphatase 95 U/L (35-105); Anion Gap 16.1 (5-19); Aspartate Amino Transferase 56 U/L (0-32); Blood Urea Nitrogen 14 mg/dL (6-20); Calcium 9.9 mg/dL (8.5-10.5); Carbon Dioxide 21 mmol/L (22-29); Chloride 106 mmol/L (98-107); Gamma Glutamyl Transferase 57 U/L (5-36); Globulin 3.5 g/dL (1.3-4.6); Glomerular Filtration Rate 76.2 mL/min (90-130); Glucose 109 mg/dL (65-115); Osmolality Calculated 289 mOsm/kg (285-295); Potassium 4.1 mmol/L (3.5-5.1); Sodium 139 mmol/L (136-145); Thyroid Stimulating Hormone 0.88 uIU/mL (0.27-4.20); Total Bilirubin 0.3 mg/dL (0.15-1.2); Total Protein 7.6 g/dL (6.6-8.7)
[2022-09-06 17:04] LABS: HIV 1 & 2 Antibody Non-Reactive (Non-Reactiv); HIV 1 & 2 Antigen Non-Reactive (Non-Reactiv)
[2022-09-12 00:07] LABS: Hepatitis C Genotype RNA 2
== END 2022-09-06 14:11 | disposition home or self-care (01) ==
LOC: LAB 14:14
PROVIDERS: PCP Family Medicine; Visit Provider Family Medicine
DX: B19.20 Unspecified viral hepatitis C without hepatic coma (principal)
CPT/HCPCS: 36415; 80053; 82977; 83010; 84443; 85025; 85610; 87806; 87902

== ENCOUNTER 2022-09-08 10:03 | Day surgery (SDC) | payer OTHER, MEDICAID, SELFPAY ==
[2022-09-07 08:02] VITALS: BMI 44.9
[2022-09-08] VITALS (9 sets, daily range): BP systolic 116–146; BP diastolic 71–100; PULSE 78–114; RESP 18–22; TEMP 36.2–37.1; O2SAT 95–99
[2022-09-08] MEDS: sodium chloride 0.9% 1,000 ML 30 ML IV (10:50)
[2022-09-08 11:55] LABS: Blood Urea Nitrogen 14 mg/dL (6-20); Calcium 10.1 mg/dL (8.5-10.5); Carbon Dioxide 20 mmol/L (22-29); Chloride 103 mmol/L (98-107); Glomerular Filtration Rate 76.2 mL/min (90-130); Glucose 109 mg/dL (65-115); Osmolality Calculated 281 mOsm/kg (285-295); Sodium 135 mmol/L (136-145)
[2022-09-08 11:57] LABS: Anion Gap 16.5 (5-19); Potassium 4.5 mmol/L (3.5-5.1)
--- NOTE | 2022-09-08 13:08 | W.PM.OPSUD ---
Surgery/Procedure H&P Update DATE OF PROCEDURE: September 08, 2022 DATE H&P PERFORMED: 08/30/22 H&P UPDATE INFORMATION: I have reviewed H&P completed within last 30 days, I have examined patient prior to procedure and No changes to prior documentation CHANGES TO PREVIOUS DOCUMENTATION: No changes PREOP DIAGNOSIS: Multiple buccal mucoceles PRIMARY INDICATION FOR PROCEDURE: Multiple right oral buccal and oral vestibule mucoceles PLANNED PROCEDURE: Operation Date: 09/08/22 11:40 Proposed Procedures p excision of lower lip 52118,K13.79(Not Applicable) - Oc Torres MD
--- NOTE | 2022-09-08 13:17 | P.ANESASSM_ITS ---
Pre-Anesthetic Assessment Height/Weight: Height 1.65 m Weight 122.47 kg Temp Pulse Resp BP Pulse Ox O2 Del Method 97.9 F 90 18 146/100 96 09/08/22 10:21 09/08/22 10:21 09/08/22 10:21 09/08/22 10:21 09/08/22 10:21 09/08/22 10:22 Preop Diagnosis: Multiple buccal mucoceles Operation Date: 09/08/22 11:40 Proposed Procedures p excision of lower lip 86298,K13.79(Not Applicable) - Oc Torres MD Familial anesthetic complications: none Was Beta Alonzo taken within 24 hours: N/A Was Clonidine taken within 24 hours: Yes Last intake: Intake Last Liquid Date 09/07/22 Last Liquid Time 07:00 Last Solid Date 09/07/22 Last Solid Time 17:00 Social No alcohol and No tobacco Exam alert, oriented x 3, clear to auscultation bilaterally and regular rate & rhythm Airway Submandibular: within normal limits Cervical ROM: within normal limits Mallampati: Class II Dentition: chipped CV/HEM Hypertension Hepatic Hepatitis (C) Metabolic Morbid Obesity [facility] [place] Lower Back Pain Neuropsych Anxiety and Depression Anesthetic Plan ASA status: 3 Anesthesia: General Medications/Allergies Home Medications Medication Instructions Recorded Confirmed Last Taken Type potassium chloride 8 mEq 8 meq PO TID 90 days #270 tabs 04/27/22 09/08/22 09/08/22 Rx tablet,extended release Crutches bilaterally #1 ea 05/10/22 09/06/22 Unknown Rx miscellaneous medical supply See Rx Instructions miscellaneous 05/10/22 09/06/22 Unknown Rx .COMPLEX #1 ea baclofen 10 mg tablet 10 mg PO TID PRN pain 30 days #90 07/07/22 09/08/22 09/07/22 Rx tabs docusate sodium 100 mg capsule 100 mg PO BID 30 days #60 caps 07/07/22 09/08/22 09/07/22 Rx estradiol 2 mg tablet 1 mg PO DAILY #30 tabs 07/07/22 09/08/22 09/08/22 Rx doxycycline hyclate 100 mg capsule 100 mg PO BID #60 caps 07/21/22 09/08/22 09/07/22 Rx amlodipine 10 mg tablet 10 mg PO DAILY 90 days #90 tabs 08/09/22 09/08/22 09/08/22 08:00 Rx clonidine HCl 0.1 mg tablet 0.1 mg PO BID 30 days #60 tabs 08/09/22 09/08/22 Rx gabapentin 400 mg capsule 400 mg PO TID 30 days #90 caps 08/09/22 09/08/22 09/08/22 Rx losartan 100 mg tablet 100 mg PO DAILY 30 days #30 tabs 08/09/22 09/08/22 09/07/22 Rx bupropion HCl 150 mg 24 hr tablet, 150 mg PO QAM 30 days #30 tabs 08/10/22 09/08/22 09/08/22 Rx extended release clonazepam 0.5 mg tablet 0.5 mg PO DAILY PRN anxiety 30 08/10/22 09/08/22 09/07/22 Rx days #20 tabs paroxetine HCl 20 mg tablet (Paxil) 20 mg PO QAM anxiety, depression 08/10/22 09/08/22 09/08/22 Rx #30 tabs amitriptyline 25 mg tablet 25 mg PO .at bedtime 30 days #30 08/22/22 09/08/22 09/07/22 Rx tabs Allergies Allergy/AdvReac Type Severity Reaction Status Date / Time No Known Allergies Allergy Verified 09/08/22 10:17 Current Medications Generic Name Dose Route Start Last Admin Trade Name Freq PRN Reason Stop Dose Admin Sodium Chloride 1,000 mls @ 30 mls/hr 09/08/22 10:15 09/08/22 10:50 Sodium Chloride 0.9% IV 09/09/22 10:14 30 mls/hr .Q24H HOLLY Administration PFSH Anesthesia Medical History Abdominal pain Abnormality of gait due to impairment of balance Anxiety Chronic back pain greater than 3 months duration Chronic neck pain Depression Edema History of COVID-19 HTN (hypertension) with goal to be determined Impairment of balance Methamphetamine dependence in remission Obesity Psychiatric care Surgical History H/O tubal ligation History of hysterectomy History of open reduction and internal fixation (ORIF) procedure Hx of cholecystectomy Family History Sister Cancer Other Diabetes Social History Smoking and tobacco status: current every day smoker cigarettes Packs smoked per day: 0.5 Alcohol intake: never Lives independently: Yes History of recent travel: No Female Reproductive History Spontaneous abortions: No Data Anesthesia : 09/08/22 10:45 BMP 09/08/22 10:45 Sodium 135 L Potassium 4.5 Chloride 103 Carbon Dioxide 20 L BUN 14 Creatinine 0.8 Glucose 109 Calcium 10.1 Cardiac Studies: No Data to Display
--- NOTE | 2022-09-08 13:51 | P.OP_ITS ---
Operative Report Date of procedure: September 08, 2022 Pre-op diagnosis: Preop Diagnosis Multiple buccal mucoceles Post-op diagnosis: Same Post-op findings: Multiple right submucosal buccal vestibular ranula Procedure done: Excision of multiple right submucosal buccal vestibular ranula with closure Implants: No implants or drains. Specimens removed/disposition: Minor salivary glands mucocele and mucosa Pathology: Same Surgeon: Oc Torres MD Anesthesia: General and Local Estimated blood loss: 25 mL Complications: No complications encountered Findings: 47-year-old female patient has had multiple oral ranulas develop in the right gingival buccal sulcus area. She has popped these repeatedly over the years. Now she has multiple enlarging cysts that are hurting and preventing her from chewing properly. Brief History: 47-year-old female patient with multiple recurrent oral mucosal and submucosal minor salivary gland illness. These need to be excised. She is being brought to the operating room to do this under general and local anesthesia combined. The procedure its risks and complications were explained in detail. She understands and informed consent is granted and witnessed. She understands the risks to include recurrence pain bleeding numbness weakness and need for additional treatment as well as more serious risks associated with anesthesia. With these things understood informed consent was granted and witnessed. Procedure: Description of procedure: The patient was placed on the operating table in the supine position. Adequate general endotracheal tube anesthesia was obtained. She was repositioned in a semirecumbent position and tilted towards the right side. This gave access to the right gingivobuccal sulcus and the oral vestibule. By palpation these areas were identified and injection with local was accomplished to make sure that none of these were actually popped into. Attempted to keep these intact. A total of 5.1 mL of 2% Xylocaine with 1- 100,000 epinephrine was utilized. The patient was then prepped and draped in usual fashion. A timeout was accomplished identifying the patient date of plan procedure allergies fire risk and medications given. With all in agreement the procedure continued. With proper retraction and suction present a 15 blade was used to incise through the mucous membrane surrounding the granulation. This was carried down to the deeper areas. Initially it is thought to possibly do marsupialization. However there were too many to accomplish in that way. Therefore all of the ranula were dissected at free with there minor salivary gland attachments. Care was taken to make sure that all of these were removed. At least 5 or 6 were removed. Then bleeding was controlled with pressure and then a single layer suture was done with interrupted 4-0 chromic. No bleeding was encountered. The area was cleansed and rinsed with peroxide and saline. The throat was suctioned clean. Specimen was sent for permanent section only. Patient tolerated the procedure well and arrived in recovery in stable condition. Estimated blood loss was 25 mL or less.
[2022-09-08] MEDS: ondansetron 2 mg/ML SDV 2 mL 4 MG IVP (14:02)
[2022-09-08] MEDS: oxyCODONE-APAP 10-325 mg Tablet 1 TAB PO (14:27)
--- NOTE | 2022-09-08 14:36 | ANE.PACU2 ---
Inpatient post-anesthesia follow up: Airway intact: Yes Vital signs: Temperature 98.7 F Pulse Rate 78 Respiratory Rate 18 Blood Pressure 142/88 Pulse Oximetry 96 Oxygen Delivery Me thod Room Air Oxygen Flow Rate 6 Fraction of Inspir ed Oxygen Hydration adequate: Yes Nausea and vomiting: No Pain level: 1 Mental status: Baseline
== END 2022-09-08 14:57 | disposition home or self-care (01) ==
PROVIDERS: Anesthesiology; PCP Family Medicine; Visit Provider Otolaryngology
PROC: (CPT 40812; principal; 2022-09-08 11:30)
DX: K13.79 Other lesions of oral mucosa (principal); I10 Essential (primary) hypertension; Z86.19 Personal history of other infectious and parasitic diseases; E66.01 Morbid (severe) obesity due to excess calories; Z68.41 Body mass index [BMI] 40.0-44.9, adult; Z86.16 Personal history of COVID-19; E66.9 Obesity, unspecified; F17.210 Nicotine dependence, cigarettes, uncomplicated
CPT/HCPCS: 40812; 36415; 80048; 88305; J1100; J1200; J2405; J2704; J2710; J3010; J3490; J7030

== ENCOUNTER 2022-09-22 13:29 | Outpatient (CLI) | payer OTHER, MEDICAID, SELFPAY ==
[2022-09-22 14:18] LABS: Lipase 19 U/L (13-60)
== END 2022-09-22 13:30 | disposition home or self-care (01) ==
LOC: LAB 13:34
PROVIDERS: PCP Family Medicine; Visit Provider Emergency Medicine
DX: R11.0 Nausea (principal)
CPT/HCPCS: 83690

== ENCOUNTER 2022-10-27 06:55 | Outpatient (CLI) | payer OTHER, MEDICAID, SELFPAY ==
--- NOTE | 2022-10-27 07:15 | US_ITS ---
WS: [id number] Gallbladder and right upper quadrant ultrasound, 10/27/2022 Clinical Data: fib-4 indeterminate for liver fibrosis Comparison: None. Findings: The gallbladder is absent. The common bile duct is 0.7 cm and there are no intrahepatic ductal abnormalities. Liver shows no cysts, masses or dilated intrahepatic ducts. The portal vein shows normal flow. The li giovanny parenchyma shows minimal mixed echotexture which can be seen with fatty infiltration. The pancreas is obscured by overlying bowel gas but no cyst, pseudocyst, or evidence of pancreatitis is noted. Right kidney measures 11.1 cm and no cyst, masses or hydronephrosis can be seen. The aorta and inferior vena cava show no vascular abnormalities. US/US abdomen limited [id number] Impression: 1. Fatty infiltration liver. 2. Cholecystectomy.
== END 2022-10-27 06:56 | disposition home or self-care (01) ==
LOC: RAD 06:56
PROVIDERS: PCP Family Medicine; Visit Provider Family Medicine
DX: B19.20 Unspecified viral hepatitis C without hepatic coma (principal); K74.00 Hepatic fibrosis, unspecified; R11.0 Nausea; K76.0 Fatty (change of) liver, not elsewhere classified; Z90.49 Acquired absence of other specified parts of digestive tract
CPT/HCPCS: 76705

== ENCOUNTER 2022-11-17 10:54 | Outpatient (CLI) | payer OTHER, MEDICAID, SELFPAY ==
--- NOTE | 2022-11-17 12:45 | USCV_ITS ---
Raiza Mccall Age: 47 Gender: F : 1975 Exam Date: 11/17/2022 11:29 Ordering Phys: Erika Bell MD ([email or web address]) Technologist: [place] [facility] [place]: Chest pain BP: 179 / 105 HR: 63 Rhythm: Sinus Technical Quality: Adequate MEASUREMENTS (Male / Female) Normal Values 2D ECHO LV Diastolic Diameter PLAX 4.6 cm 4.2 - 5.9 / 3.9 - 5.3 cm LV Systolic Diameter PLAX 3.1 cm IVS Diastolic Thickness 1.3 cm 0.6 - 1.0 / 0.6 - 0.9 cm IVS Systolic Thickness 1.7 cm LVPW Diastolic Thickness 1.3 cm 0.6 - 1.0 / 0.6 - 0.9 cm LVPW Systolic Thickness 1.8 cm LVOT Diameter 2.0 cm LV Ejection Fraction 2D Teich 60.0 % LV Ejection Fraction MOD 2C 76.0 % LV Ejection Fraction 2C AL 77.5 % LA Diameter 4.2 cm M-MODE Aortic Annulus Diameter 2.8 cm LA Ao Ratio MM 1.5 MV E Point Septal Separation 0.8 cm DOPPLER AV Peak Velocity 130.0 cm/s LVOT Peak Velocity 89.0 cm/s AV Area Cont Eq vti 2.3 cm squared AV Area Cont Eq pk 2.2 cm squared MV Area PHT 5.0 cm squared Mitral E to A Ratio 0.9 MV E' Velocity 56.0 cm/s Mitral E to LV E' Septal Ratio 6.8 TR Peak Velocity 203.3 cm/s TR Peak Gradient 16.5 mmHg TV Peak E Velocity 97.0 cm/s Right Atrial Pressure 3.0 mmHg Pulmonary Artery Systolic Pressu 19.5 mmHg RV Acceleration Time 0.1 s FINDINGS Left Ventricle Normal left ventricular size, systolic function and wall thickness, with no regional wall motion abnormalities. Left ventricular ejection fraction is estimated at 70 %. Normal diastolic function. Right Ventricle Normal right ventricular size and systolic function. Right ventricular systolic pressure 23 mmHg. Right Atrium Normal right atrial size. Left Atrium Mildly increased left atrial size. Mitral Valve Structurally normal mitral valve. Mildly thickened mitral valve. No mitral valve stenosis. Trace mitral valve regurgitation. Aortic Valve Aortic valve not well visualized. No aortic valve stenosis. No aortic valve regurgitation. Tricuspid Valve Structurally normal tricuspid valve. No tricuspid valve stenosis. Trace tricuspid valve regurgitation. Pulmonic Valve Pulmonic valve not well visualized. Pericardium No pericardial effusion. Aorta Normal size aortic root and proximal ascending aorta. IVC Normal IVC dimension with >50% respiratory change of the inferior vena cava. CONCLUSIONS 1. Normal left ventricular size, systolic function and wall thickness, with no regional wall motion abnormalities. Left ventricular ejection fraction is estimated at 70 %. Normal diastolic function. 2. No significant valvular abnormality. 3. Pulmonary artery pressure estimated at 23 mm Hg. 4. No prior similar studies to compare. Erika Bell MD (Electronically Signed) Final Date: 18 November 2022 19:09 S
[2022-11-17 13:11] LABS: Alanine Aminotransferase 57 U/L (0-33); Albumin Level 4.2 g/dL (3.5-5.2); Alkaline Phosphatase 108 U/L (35-105); Anion Gap 16.3 (5-19); Aspartate Amino Transferase 49 U/L (0-32); Blood Urea Nitrogen 12 mg/dL (6-20); Calcium 9.2 mg/dL (8.5-10.5); Carbon Dioxide 22 mmol/L (22-29); Chloride 103 mmol/L (98-107); Chol HDL Ratio 4.22 mg/dL (0.0-4.40); Cholesterol 245 mg/dL (0-200); Globulin 3.5 g/dL (1.3-4.6); Glomerular Filtration Rate 106.3 mL/min (90-130); Glucose 95 mg/dL (65-115); HDL Cholesterol 58 mg/dL (60-100); LDL Cholesterol Calculated 147 mg/dL (50-129); LDL HDL Ratio 2.53 RATIO (0.00-3.22); Osmolality Calculated 284 mOsm/kg (285-295); Potassium 4.3 mmol/L (3.5-5.1); Sodium 137 mmol/L (136-145); Total Bilirubin 0.4 mg/dL (0.15-1.2); Total Protein 7.7 g/dL (6.6-8.7); Triglycerides 198 mg/dL (0-150)
== END 2022-11-17 10:55 | disposition home or self-care (01) ==
LOC: RAD 10:54
PROVIDERS: PCP Family Medicine; Visit Provider Internal Medicine Cardiovascular Disease
DX: Z13.220 Encounter for screening for lipoid disorders (principal); Z13.6 Encounter for screening for cardiovascular disorders; R06.02 Shortness of breath; I10 Essential (primary) hypertension; R07.9 Chest pain, unspecified
CPT/HCPCS: 36415; 80053; 80061; 93306

== ENCOUNTER 2022-12-28 15:39 | Outpatient (CLI) | payer OTHER, MEDICAID, SELFPAY ==
[2022-12-28 17:40] LABS: Hepatitis A Antibody IgM Non-Reactive (Nonreactive); Hepatitis B Core AB, Total Non-Reactive (Nonreactive); Hepatitis B Surface AB 3.5 (11.5-1000); Hepatitis B Surface Antigen Non-Reactive (Nonreactive); Hepatitis C Virus Antibody Reactive (Nonreactive)
[2022-12-31 18:35] LABS: HEP C RNA Viral Load Quant <1.18 DETECTED Log IU/mL (NOT DETECTED); HEP C RNA Viral Load Quant <15 DETECTED IU/mL (NOT DETECTED)
[2022-12-31 18:35] LABS: HEP C RNA Viral Load Quant <1.18 NOT DETECTED Log IU/mL (NOT DETECTED); HEP C RNA Viral Load Quant <15 NOT DETECTED IU/mL (NOT DETECTED)
[2023-01-03 00:11] LABS: Hepatitis C Genotype RNA NOT DETECTED
== END 2022-12-28 15:40 | disposition home or self-care (01) ==
LOC: LAB 15:46
PROVIDERS: PCP Family Medicine; Visit Provider Family Medicine
DX: B18.2 Chronic viral hepatitis C (principal)
CPT/HCPCS: 36415; 86705; 86706; 86709; 86803; 87340; 87522; 87902

== ENCOUNTER 2023-03-14 20:47 | Emergency (ER) | payer OTHER, MEDICAID, SELFPAY ==
[2023-03-14 20:57] VITALS: BP 185/106; PULSE 107; RESP 18; TEMP 36.6; O2SAT 96; BMI 47.2
--- NOTE | 2023-03-14 21:03 | XRR_ITS ---
PROCEDURE INFORMATION: Exam: XR Chest Exam date and time: 03/14/2023 9:21 PM Age: 47 years old Clinical indication: Fever; Additional info: Fever and upper respiratory symptoms TECHNIQUE: Imaging protocol: Radiologic exam of the chest. Views: 1 view. COMPARISON: CR XR cervical spine 3V* [id number] 05/25/2021 12:21 PM FINDINGS: Lungs: Calcified granuloma in the right lung base. The lungs otherwise are clear. Pleural spaces: Unremarkable. No pleural effusion. No pneumothorax. Heart/Mediastinum: Unremarkable. No cardiomegaly. Bones/joints: Unremarkable. XR/XR chest 1V portable [id number] IMPRESSION: No acute findings.
--- NOTE | 2023-03-14 21:11 | ED_ITS ---
HPI - Fever General: Chief Complaint: Fever Stated Complaint: mouth and throat pain Time Seen by Provider: 03/14/23 21:02 History of Present Illness: Patient is a 47-year-old female comes to the ED complaining of fever and sore throat. Patient says symptoms have been going on now for 4 days. She reports feeling fatigue and is developing some sores on her lips. Endorses nausea but denies any emesis. Endorses couple episodes of diarrhea. Denies any cough, shortness of breath, abdominal pain, dysuria or hematuria. Associated symptoms: Reports diarrhea; Deny abdominal pain, flank pain, chills, chest pain, dysuria, headache(s), nasal congestion, nausea or vomiting Review of Systems Const: Reports: fever(s) and fatigue; Denies: chills Eyes: Denies: change in vision or eye discomfort ENMT: Reports: throat pain; Denies: odynophagia, nasal discharge or nasal congestion Card: Denies: chest pain, palpitations, edema, swelling of feet/ankles, dyspnea on exertion or orthopnea Resp: Denies: dyspnea, productive cough or non-productive cough GI: Reports: diarrhea; Denies: abdominal pain, nausea, vomiting, constipation or hematochezia : Denies: flank pain, dysuria or hematuria Musc: Denies: neck pain, back pain or extremity swelling Skin/Breast: Denies: rash or new lesions Neuro: Denies: headache(s), numbness in extremities or weakness in extremities PFS ED PFSH: Medical History Abdominal pain Abnormality of gait due to impairment of balance Anxiety Chronic back pain greater than 3 months duration Chronic neck pain Depression Edema History of COVID-19 HTN (hypertension) with goal to be determined Impairment of balance Methamphetamine dependence in remission Obesity Psychiatric care Surgical History H/O tubal ligation History of hysterectomy History of open reduction and internal fixation (ORIF) procedure Hx of cholecystectomy Hx of oral surgery Mucocele removal from lower lip Family History Sister Cancer Grandfather Hx of CABG Mother Hx of CABG Diabetes Family/Other Hx of CABG Diabetes Other Hypertension Social History Smoking and tobacco status: current every day smoker e-cigarettes E-Cigarette Details: vaporizer device E-cig/vape details: occasional Alcohol intake: never Substance/Drug Use: never Lives independently: Yes Female Reproductive History: Spontaneous abortions: No Physical Exam Const: COMMON NORMALS: no acute distress, patient oriented x3 and alert GENERAL APPEARANCE: cooperative HENMT: COMMON NORMALS: normocephalic HEAD & SCALP: normocephalic MOUTH: Normal oral and palatal mucosa present THROAT: posterior oropharynx normal and uvula midline Neck/C-Spine: COMMON NORMALS: supple GENERAL: Yes normal visual inspection Resp: COMMON NORMALS: normal respiratory effort, No retractions, No use of accessory muscles and clear to auscultation bilaterally AUSCULTATION: clear to auscultation bilaterally Cardio: COMMON NORMALS: regular rate, regular rhythm, S1 normal heart sound present, S2 normal heart sound present, No gallops present (Cardio), No clicks present (Cardio), No murmurs present (Cardio) and Peripheral pulses 2+ throughout RATE: regular rate RHYTHM: regular rhythm HEART SOUNDS: S1 normal heart sound present and S2 normal heart sound present PERIPHERAL PULSES: Peripheral pulses 2+ throughout GI: COMMON NORMALS: Normal to inspection, nondistended, normoactive bowel sounds present, Soft to palpation, non-tender and no masses PALPATION: Yes Soft to palpation : COMMON NORMALS: Yes no CVA tenderness BLADDER/KIDNEY EXAM: Yes no CVA tenderness Back/Pelvis: COMMON NORMALS: no CVA tenderness Extremity: COMMON NORMALS: normal to inspection Neuro: COMMON NORMALS: patient oriented x3 SENSORIUM/ORIENTATION: Yes alert GAIT: Yes Normal gait present Skin: GENERAL SKIN EXAM: dry skin Course Vital Signs: Vital signs: Vital Signs Temperature 97.9 F 03/14/23 20:57 Pulse Rate 107 H 03/14/23 20:57 Respiratory Rate 18 03/14/23 20:57 Blood Pressure 185/106 03/14/23 20:57 Pulse Oximetry 96 03/14/23 20:57 Oxygen Delivery Me thod Room Air 03/14/23 20:57 MDM - Fever Medical Decision Making Patient is a 47-year-old female comes to the ED complaining of fever and sore throat. Patient says symptoms have been going on now for 4 days. She reports feeling fatigue and is developing some sores on her lips. Endorses nausea but denies any emesis. Endorses couple episodes of diarrhea. Denies any cough, shortness of breath, abdominal pain, dysuria or hematuria. Vitals are stable. Exam of patient is benign. Chest x-ray shows no acute findings. Influenza, COVID and strep are all negative. Patient was diagnosed with viral syndrome and was stable for discharge home. Told to follow-up with his PCP in the next week for reevaluation. Return to ED precautions given. Patient understood and agreed with plan. Lab Data I reviewed the patient's lab results. Radiology Impressions Chest X-Ray 03/14/23 21:03 IMPRESSION: No acute findings. Laboratory Results Influenza Type A Ag negative (Negative) 03/14/23 21:08 Influenza Type B Ag negative (Negative) 03/14/23 21:08 SARS-CoV-2 Ag (Rapid) negative (Negative) 03/14/23 21:08 Group A Strep Rapid Negative (Negative) 03/14/23 21:08 Discharge Plan Discharge Patient Disposition: Home Clinical Impression: Viral syndrome Condition: Stable Prescriptions: No Action amlodipine 10 mg tablet 10 mg PO DAILY 90 Days Qty: 90 1RF Rx Instructions: 340B clonidine HCl 0.1 mg tablet 0.1 mg PO BID 30 Days Qty: 60 2RF losartan 100 mg tablet 100 mg PO DAILY 30 Days Qty: 30 2RF docusate sodium 100 mg capsule 100 mg PO BID 30 Days Qty: 60 2RF potassium chloride 8 mEq tablet extended release 8 meq PO TID 90 Days Qty: 270 1RF Rx Instructions: WITH MEAL oxycodone-acetaminophen 5-325 mg tablet 1 tab PO TID PRN Rx Instructions: Dr. Reyes with Pain Management diclofenac sodium 1 % gel 4 g topical QID Qty: 100 2RF Rx Instructions: apply to lower back estradiol 2 mg tablet 1 mg PO DAILY Qty: 30 2RF benzonatate 200 mg capsule 200 mg PO BID PRN (Reason: cough) Qty: 30 0RF albuterol sulfate [Ventolin HFA] 90 mcg/actuation HFA aerosol inhaler 2 puff inhalation Q6H PRN (Reason: shortness of breath or wheezing) Qty: 8.5 0RF prednisone 10 mg tablet 30 mg PO DAILY 5 Days Qty: 15 0RF ondansetron HCl 4 mg tablet 4 mg PO DAILY PRN (Reason: nausea and vomiting) 30 Days Qty: 30 0RF sofosbuvir-velpatasvir [Epclusa] 400-100 mg tablet 1 tab PO DAILY 84 Days Qty: 84 0RF carvedilol 6.25 mg tablet 6.25 mg PO BID Qty: 180 3RF Rx Instructions: must administer with a meal/food gabapentin 400 mg capsule 400 mg PO TID 30 Days Qty: 90 2RF furosemide 20 mg tablet 20 mg PO QAM PRN (Reason: edema) 90 Days Qty: 90 0RF clonazepam 0.5 mg tablet 0.5 mg PO DAILY PRN (Reason: anxiety) 30 Days Qty: 20 1RF amitriptyline 25 mg tablet 25 mg PO .at bedtime 30 Days Qty: 30 1RF bupropion HCl 150 mg tablet extended release 24 hr 150 mg PO QAM 30 Days Qty: 30 3RF buspirone 10 mg tablet 10 mg PO BID 30 Days Qty: 60 3RF paroxetine HCl 40 mg tablet 40 mg PO QAM Qty: 30 3RF Rx Instructions: do not stop taking abruptly cyclobenzaprine 5 mg tablet 10 mg PO TID MDD 6 tabs PRN (Reason: muscle spasm) Qty: 60 1RF Rx Instructions: 1 or 2 tabs as needed Discharge Orders: Discharge ED (Routine); Ordered 03/14/23 Ordered By: Azam Nye Referrals: Ana Cristina Dooley MD [Primary Care Provider] - Discharge Diet: Regular Discharge Activity: Increase activity as tolerated Patient Instructions: Viral Syndrome - Adult Activity Restrictions/Additional Instructions: Follow-up with medical provider as directed in the next 5 to 7 days for reevaluation. Make sure you drink plenty fluids and stay hydrated. Take [id number] Tylenol or ibuprofen for any fevers. Return to the ER or your medical provider if condition worsens. Please read and understand discharge in structions. Thank you for choosing [facility] for your healthcare needs today. Please realize this is an emergency room and that we are providing you with a medical screening exam and this may not be complete and all inclusive of all the testing and or work up that you may need to determine your ailment or severity of your illness. It is very important that you follow up as instructed or that you return to the Emergency Department should you have concerns or if your condition changes or worsens in any way. Coding Level of Care Code ED [employer]
[2023-03-14] MEDS: ondansetron 4 MG Tablet PO (21:32)
[2023-03-14] MEDS: acetaminophen 500 mg Tablet 1000 MG PO (21:32)
[2023-03-14 21:40] LABS: Rapid Strep A Test Negative (Negative)
[2023-03-14 21:49] LABS: Influenza A by IFA negative (Negative); Influenza B by IFA negative (Negative); SARS Covid-2 Antigen negative (Negative)
== END 2023-03-14 22:28 | disposition home or self-care (01) ==
PROVIDERS: Emergency Provider Physician Assistant; PCP Family Medicine
DX: B34.9 Viral infection, unspecified (principal); Z20.822 Contact with and (suspected) exposure to COVID-19; F17.290 Nicotine dependence, other tobacco product, uncomplicated; I10 Essential (primary) hypertension
CPT/HCPCS: 71045; 87081; 87426; 87804; 87880; 99284; Q0162

== ENCOUNTER → 2023-04-03 09:46 | Outpatient (BNVA) | payer OTHER, MEDICAID, SELFPAY | PROVIDERS: PCP Family Medicine; Visit Provider Family Medicine | DX: M70.52 Other bursitis of knee, left knee (principal); I10 Essential (primary) hypertension | CPT/HCPCS: 73562 ==

== ENCOUNTER 2023-04-19 04:29 | Emergency (ER) | payer OTHER, MEDICAID, SELFPAY ==
[2023-04-19] VITALS (7 sets, daily range): BP systolic 114–143; BP diastolic 58–93; PULSE 84–95; RESP 12–27; TEMP 36.6; O2SAT 95–100; BMI 43.2
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
[2023-04-19] MEDS: HYDROmorphone 1 mg/mL INJ 1 mL IVP (05:07)
[2023-04-19] MEDS: ondansetron 2 mg/ML SDV 2 mL 4 MG IVP (05:08)
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
[2023-04-19] MEDS: propofol 10 mg/mL SDV 20 mL 100 MG IVP (05:13)
[2023-04-19] MEDS: propofol 10 mg/mL SDV 20 mL 30 MG IVP (05:15)
[2023-04-19 05:50] LABS: Basophils # 0.1 10^3/uL (0.0-0.1); Basophils % 0.5 %; Eosinophils # 0.1 10^3/uL (0.0-0.8); Eosinophils % 0.8 %; Hematocrit 42.8 % (37.0-47.0); Hemoglobin 14.1 g/dL (11.5-15.3); Lymphocytes # 1.9 10^3/uL (0.8-4.8); Lymphocytes % 19.2 %; Mean Corpuscular HGB Conc 32.9 g/dL (30.0-36.0); Mean Corpuscular Hemoglobin 30.7 pg (28.0-34.0); Mean Platelet Volume 10.9 fL (7.4-10.4); Monocytes # 0.8 10^3/uL (0.2-0.9); Monocytes % 8.4 %; Neutrophils # 6.93 10^3/uL (1.8-7.7); Neutrophils % 70.8 %; Nucleated Red Blood Cells % 0 %; Platelet Count 264 10^3/cmm (130-400); Red Cell Distribution Width 12.6 % (12.1-15.1); White Blood Count 9.8 10^3/uL (4.0-10.0)
[2023-04-19 06:10] LABS: Alanine Aminotransferase 39 U/L (0-33); Albumin Level 4.2 g/dL (3.5-5.2); Alkaline Phosphatase 101 U/L (35-105); Blood Urea Nitrogen 15 mg/dL (6-20); Carbon Dioxide 19 mmol/L (22-29); Chloride 107 mmol/L (98-107); Globulin 2.9 g/dL (1.3-4.6); Glomerular Filtration Rate 58.7 mL/min (90-130); Glucose 97 mg/dL (65-115); Osmolality Calculated 289 mOsm/kg (285-295); Sodium 139 mmol/L (136-145); Total Bilirubin 0.5 mg/dL (0.15-1.2); Total Protein 7.1 g/dL (6.6-8.7)
[2023-04-19 06:15] LABS: Anion Gap 17.3 (5-19); Aspartate Amino Transferase 37 U/L (0-32); Potassium 4.3 mmol/L (3.5-5.1)
== END 2023-04-19 06:05 | disposition short-term general hospital (02) ==
PROVIDERS: Emergency Provider Emergency Medicine; PCP Family Medicine
DX: S83.005A Unspecified dislocation of left patella, initial encounter (principal); F17.290 Nicotine dependence, other tobacco product, uncomplicated; I10 Essential (primary) hypertension; Y04.2XXA Assault by strike against or bumped into by another person, initial encounter
CPT/HCPCS: 27560; 73560; 73562; 80053; 85025; 96374; 96375; 99285; J1170; J2405; J2704

== ENCOUNTER → 2023-05-11 09:09 | Outpatient (BNVA) | payer OTHER, MEDICAID, SELFPAY | PROVIDERS: PCP Family Medicine; Visit Provider Student in an Organized Health Care Education/Training Program | DX: S89.92XA Unspecified injury of left lower leg, initial encounter (principal); X58.XXXA Exposure to other specified factors, initial encounter; Y04.2XXA Assault by strike against or bumped into by another person, initial encounter; S83.105A Unspecified dislocation of left knee, initial encounter | CPT/HCPCS: 73562 ==

== ENCOUNTER 2023-08-01 15:20 | Emergency (ER) | payer MEDICAID, SELFPAY ==
[2023-08-01 15:27] VITALS: BP 148/82; PULSE 62; RESP 16; TEMP 37.1; O2SAT 97; BMI 43.2
--- NOTE | 2023-08-01 15:57 | W.ED.SKABFB ---
HPI - Skin/Abscess/Foreign Bdy General: Chief complaint: Skin/Abscess/Foreign Body Stated complaint: rash/knee pain Time Seen by Provider: 08/01/23 15:36 History of Present Illness: 48-year-old female with history of IV drug abuse presents emergency room with chronic leg lesion for many years. Patient was seen and evaluated by instrument panel assembler and had multiple biopsy. Patient presents emergency room today due to the fact that she had some redness around the lesions but denies any pain around the lesion. No fever or chills. Also complaining of left knee pain from recent injury. Patient reveals that she has a fracture and scheduled for surgery next few weeks. No new injury or fall. She described the pain as sharp sensation with severity of 7 out of 10 especially with weight bearing. Associated symptoms: Deny chills or fever(s) Review of Systems General: Reports: 10 or more systems reviewed and unremarkable except in HPI and below Const: Denies: fever(s), chills, body aches, change in appetite, change in weight, fatigue, malaise, diaphoresis or change in sleep pattern Musc: Reports: other (Left knee pain chronic pain.) Skin/Breast: Reports: rash, sores and non-healing lesions; Denies: new lesions, jaundice or dry skin PFSH ED PFSH: Medical History Abdominal pain Abnormality of gait due to impairment of balance Anxiety Chronic back pain greater than 3 months duration Chronic neck pain Depression Edema History of COVID-19 HTN (hypertension) with goal to be determined Impairment of balance Methamphetamine dependence in remission Obesity Psychiatric care Surgical History H/O tubal ligation History of hysterectomy History of open reduction and internal fixation (ORIF) procedure Hx of cholecystectomy Hx of oral surgery Mucocele removal from lower lip Family History Sister Cancer Grandfather Hx of CABG Mother Hx of CABG Diabetes Family/Other Hx of CABG Diabetes Other Hypertension Social History Smoking and tobacco status: current every day smoker e-cigarettes E-Cigarette Details: vaporizer device E-cig/vape details: occasional Alcohol intake: never Substance/Drug Use: never Lives independently: Yes Female Reproductive History: Spontaneous abortions: No Physical Exam Const: COMMON NORMALS: no acute distress, average body habitus, patient oriented x3, no limitations, healthy appearing, alert and well nourished Neck/C-Spine: COMMON NORMALS: full ROM, no lymphadenopathy, supple, no meningeal signs, no JVD, Thyroid normal and No carotid bruits THYROID: Thyroid normal Chest: COMMONS NORMALS: normal inspection of the chest, normal palpation of entire chest wall, normal inspection of the breasts and normal palpation of the breasts Breast/axilla inspection: Yes normal inspection of the breasts BREAST/AXILLA PALPATION: Yes normal palpation of the breasts Resp: COMMON NORMALS: normal respiratory effort, No retractions, No use of accessory muscles, clear to auscultation bilaterally and percussion normal AUSCULTATION: clear to auscultation bilaterally PERCUSSION: percussion normal Cardio: COMMON NORMALS: no JVD Extremity: NARRATIVE EXTREMITY EXAM: Left ankle with some tenderness on palpation below the knee. No obvious deformity, open wound or laceration. Patient with intact sensation below the knee. Neuro: COMMON NORMALS: patient oriented x3 SENSORIUM/ORIENTATION: Yes alert MENINGEAL SIGNS: Yes no meningeal signs Psych: COMMON NORMALS: mental status grossly normal, Normal thought process present, cooperative, normal affect, speech normal, activity/motor behavior normal, denies hallucinations, denies homicidal ideation and denies suicidal ideation SPEECH: Yes normal speech THOUGHT PROCESS: Normal thought process present Skin: WOUNDS: No surgical site, No amputation site, No fistulous tract and Yes wounds noted OTHER: Lower extremity with diffuse papular rash consistent with folliculitis. No open wound, no bleeding or drainage. Course Vital Signs: Vital signs: Vital Signs Temperature 98.8 F 08/01/23 15:27 Pulse Rate 62 08/01/23 15:27 Respiratory Rate 16 08/01/23 15:27 Blood Pressure 148/82 08/01/23 15:27 Pulse Oximetry 97 08/01/23 15:27 Oxygen Delivery Me thod Room Air 08/01/23 15:27 MDM - Skin/Abscess/Foreign Bdy Medicial Decision Making Patient was made comfortable emergency room. Patient was reassured and was given IM pain medication for knee pain. Follow-up with instrument panel assembler recommended for further evaluation and treatment. Patient be discharged home on oral antibiotics. Differential Diagnosis Likely dermatophytosis, urticaria, herpes zoster, allergic reaction to drug, cellulitis, eczema, insect bites, impetigo and contact dermatitis No radiology studies performed this visit Discharge Plan Discharge Patient Disposition: Home Clinical Impression: Folliculitis Condition: Stable Prescriptions: New doxycycline hyclate 100 mg tablet 100 mg PO BID 14 Days Qty: 28 0RF mupirocin 2 % ointment kit 1 applic topical 5XD Qty: 1 0RF No Action bupropion HCl 150 mg tablet extended release 24 hr 150 mg PO QAM 30 Days Qty: 30 3RF buspirone 30 mg tablet 30 mg PO BID 30 Days Qty: 60 3RF paroxetine HCl 20 mg tablet 20 mg PO QAM 30 Days Qty: 30 3RF Rx Instructions: do not stop taking abruptly amlodipine 10 mg tablet 10 mg PO DAILY 90 Days Qty: 90 1RF Rx Instructions: 340B carvedilol 12.5 mg tablet 12.5 mg PO BID 90 Days Qty: 180 3RF Rx Instructions: must administer with a meal/food clonidine HCl 0.1 mg tablet 0.1 mg PO BID 30 Days Qty: 60 2RF cyclobenzaprine 5 mg tablet 5 mg PO TID PRN (Reason: muscle spasm) 30 Days Qty: 90 5RF diclofenac sodium 1 % gel 4 g topical QID Qty: 100 2RF Rx Instructions: apply to lower back docusate sodium 100 mg capsule 100 mg PO BID 30 Days Qty: 60 2RF estradiol 2 mg tablet 1 mg PO DAILY Qty: 30 2RF furosemide 20 mg tablet 20 mg PO QAM PRN (Reason: edema) 90 Days Qty: 90 0RF gabapentin 400 mg capsule 400 mg PO TID 30 Days Qty: 90 2RF losartan 100 mg tablet 100 mg PO DAILY 30 Days Qty: 30 2RF potassium chloride 8 mEq tablet extended release 8 meq PO TID 90 Days Qty: 270 1RF Rx Instructions: WITH MEAL albuterol sulfate [Ventolin HFA] 90 mcg/actuation HFA aerosol inhaler 2 puff inhalation Q6H PRN (Reason: shortness of breath or wheezing) Qty: 8.5 0RF ondansetron HCl 4 mg tablet 4 mg PO DAILY PRN (Reason: nausea and vomiting) 30 Days Qty: 30 0RF amitriptyline 25 mg tablet 25 mg PO .at bedtime 30 Days Qty: 30 1RF clonazepam 0.5 mg tablet 0.5 mg PO DAILY PRN (Reason: anxiety) 30 Days Qty: 20 0RF tramadol 50 mg tablet 50 mg PO Q8H PRN (Reason: pain) 7 Days Qty: 15 0RF hydrocodone-acetaminophen 7.5-325 mg tablet 1 tab PO Q8H PRN (Reason: pain) 7 Days Qty: 21 0RF Discharge Orders: Discharge ED (Routine); Ordered 08/01/23 Ordered By: Sai Garza Referrals: Arnoldo Bray DO [Primary Care Provider] - Discharge Diet: Advance as tolerated Discharge Activity: Resume usual activity Patient Instructions: Opioid Safety, Pain Management Coding Level of Care Code ED Stitching Machine Setter for Live Lozada
[2023-08-01] MEDS: ketorolac 30 mg/mL INJ IM (16:18)
[2023-08-01 16:52] VITALS: BP 142/80; PULSE 65; RESP 16; TEMP 36.8; O2SAT 98
== END 2023-08-01 16:53 | disposition home or self-care (01) ==
PROVIDERS: Emergency Provider Family Medicine; PCP Family Medicine
DX: L73.9 Follicular disorder, unspecified (principal); F17.290 Nicotine dependence, other tobacco product, uncomplicated; I10 Essential (primary) hypertension
CPT/HCPCS: 96372; 99284; J1885

== ENCOUNTER 2023-08-01 16:53 | Outpatient (CLI) | payer MEDICAID, SELFPAY ==
[2023-08-03 15:49] LABS: HEP C RNA Viral Load Quant <1.18 NOT DETECTED Log IU/mL (NOT DETECTED); HEP C RNA Viral Load Quant <15 NOT DETECTED IU/mL (NOT DETECTED)
== END 2023-08-01 16:54 | disposition home or self-care (01) ==
PROVIDERS: PCP Family Medicine; Visit Provider Family Medicine
DX: B18.2 Chronic viral hepatitis C (principal)
CPT/HCPCS: 36415; 87522